=== PATIENT | male | born 1970 | race Hispanic/Latino ===

== ENCOUNTER 2021-02-10 07:33 | Inpatient (IN) | payer BC ==
[~2021-02-10] VITALS: Ht 182.9 cm; Wt 102.1 kg
[2021-02-10] MEDS ORDERED: SODIUM CHLORIDE 0.9% 1000ML 1,000 ML IV STA (08:04)
[2021-02-10 08:22] LABS: BASOPHILS % 0.2 % (0.0-1.0); EOSINOPHILS % 0.1 % (0.0-6.0); HEMATOCRIT 53.5 % (38.2-49.6); LYMPHOCYTES # (AUTO) 0.8 (1.0-3.2); LYMPHOCYTES % 7.9 % (18.0-39.1); MEAN CORPUSCULAR HEMOGLOBIN 30.5 pg (28-32); MEAN CORPUSCULAR HGB CONC 33.6 g/dL (31-35); MEAN CORPUSCULAR VOLUME 90.7 fL (81-99); MONOCYTES # (AUTO) 0.4 (0.2-0.8); MONOCYTES % 4.3 % (4.4-11.3); NEUTROPHILS # (AUTO) 8.4 (2.1-6.9); NEUTROPHILS % 86.9 % (38.7-80.0); PLATELET COUNT 268 x10e3/uL (140-360); RED CELL DISTRIBUTION WIDTH 12.3 % (11.7-14.4)
[2021-02-10 08:34] LABS: ALBUMIN 3.2 g/dL (3.5-5.0); ALBUMIN/GLOBULIN RATIO 0.7 (0.8-2.0); ANION GAP 17.4 mmol/L (8-16); CALCIUM 8.7 mg/dL (8.4-10.2); CREATININE, SERUM 0.92 mg/dL (0.72-1.25); POTASSIUM 3.4 mmol/L (3.5-5.1)
[2021-02-10 08:40] LABS: CREATINE KINASE MB 3.4 ng/mL (0-5.0)
[2021-02-10] MEDS: CEFTRIAXONE 1 GM in SODIUM CHLORIDE 0.9% 50ML 50 ML IV SCH (08:54)
[2021-02-10] MEDS: ZINC SULFATE 50 MG CAP PO SCH (09:24)
[2021-02-10] MEDS: ASCORBIC ACID 500 MG TAB PO SCH ×2 (09:24→17:23)
[2021-02-10] MEDS: DEXAMETHASONE SOD PHOS 10 MG/1 ML VIAL IV SCH (09:24)
[2021-02-10] MEDS ORDERED: REMDESIVIR 200MG 200 MG IV ONE (14:00)
[2021-02-10] MEDS ORDERED: ONDANSETRON HCL INJ 2MG/ML 2ML 2 MG/ML VIAL IV PRN (16:30)
[2021-02-10] MEDS: ENOXAPARIN SOD INJ 40 MG/0.4 ML SYR SC SCH (17:23)
[2021-02-10 21:19] LABS: CREATINE KINASE MB 6.3 ng/mL (0-5.0)
[2021-02-10 21:30] VITALS: BP_SYST 121; BP_SYST 143; BP_DIAS 83; BP_DIAS 92
[2021-02-10 22:00] VITALS: BP 121/92
[2021-02-10 23:00] VITALS: BP 128/89
[2021-02-11] VITALS (19 sets, daily range): BP systolic 106–155; BP diastolic 75–92
[2021-02-11 05:28] LABS: BASOPHILS % 0.1 % (0.0-1.0); HEMATOCRIT 45.9 % (38.2-49.6); HEMOGLOBIN 15.4 g/dL (14.0-18.0); LYMPHOCYTES # (AUTO) 0.9 (1.0-3.2); MEAN CORPUSCULAR HEMOGLOBIN 30.2 pg (28-32); MEAN CORPUSCULAR HGB CONC 33.6 g/dL (31-35); MONOCYTES # (AUTO) 0.6 (0.2-0.8); MONOCYTES % 7.4 % (4.4-11.3); NEUTROPHILS # (AUTO) 6.5 (2.1-6.9); PLATELET COUNT 234 x10e3/uL (140-360); RED CELL DISTRIBUTION WIDTH 12.2 % (11.7-14.4)
[2021-02-11 05:46] LABS: ALBUMIN 2.5 g/dL (3.5-5.0); ALBUMIN/GLOBULIN RATIO 0.7 (0.8-2.0); ANION GAP 13.8 mmol/L (8-16); CALCIUM 8.2 mg/dL (8.4-10.2); CREATININE, SERUM 0.71 mg/dL (0.72-1.25); POTASSIUM 3.8 mmol/L (3.5-5.1)
[2021-02-11 05:48] LABS: CREATINE KINASE MB 2.7 ng/mL (0-5.0)
[2021-02-11 07:16] LABS: LYMPHOCYTES % (MANUAL) 9 % (19-48); MONOCYTES % (MANUAL) 6 % (3.4-9.0); NEUTROPHILS % (MANUAL) 85 % (40-74)
[2021-02-11 07:17] LABS: PLATELET ESTIMATE ADEQUATE; PLATELET MORPHOLOGY COMMENT FEW LARGE; RBC MORPHOLOGY COMMENT NORMAL
[2021-02-11] MEDS: DEXAMETHASONE SOD PHOS 10 MG/1 ML VIAL IV SCH (09:08)
[2021-02-11] MEDS: ZINC SULFATE 50 MG CAP PO SCH (09:08)
[2021-02-11] MEDS: ASCORBIC ACID 500 MG TAB PO SCH ×2 (09:08→17:41)
[2021-02-11] MEDS: CEFTRIAXONE 1 GM in SODIUM CHLORIDE 0.9% 50ML 50 ML IV SCH (09:08)
[2021-02-11] MEDS ORDERED: SODIUM CHLORIDE 0.9% 250ML 250 ML ONE (10:17)
[2021-02-11] MEDS: GUAIFENESIN/CODEINE 5 ML LIQD PO PRN (13:04)
[2021-02-11] MEDS: REMDESIVIR 100MG 100 MG IV SCH (14:18)
[2021-02-11] MEDS: ENOXAPARIN SOD INJ 40 MG/0.4 ML SYR SC SCH (17:41)
[2021-02-12] VITALS (24 sets, daily range): BP systolic 110–167; BP diastolic 76–134
[2021-02-12 05:17] LABS: BASOPHILS % 0.1 % (0.0-1.0); HEMATOCRIT 45.5 % (38.2-49.6); HEMOGLOBIN 15.3 g/dL (14.0-18.0); LYMPHOCYTES # (AUTO) 1.4 (1.0-3.2); LYMPHOCYTES % 14.7 % (18.0-39.1); MEAN CORPUSCULAR HEMOGLOBIN 30.2 pg (28-32); MEAN CORPUSCULAR HGB CONC 33.6 g/dL (31-35); MEAN CORPUSCULAR VOLUME 89.7 fL (81-99); MONOCYTES # (AUTO) 0.7 (0.2-0.8); MONOCYTES % 6.9 % (4.4-11.3); NEUTROPHILS # (AUTO) 7.4 (2.1-6.9); NEUTROPHILS % 77.7 % (38.7-80.0); PLATELET COUNT 281 x10e3/uL (140-360); RED BLOOD COUNT 5.07 x10e6/uL (4.3-5.7); RED CELL DISTRIBUTION WIDTH 12.5 % (11.7-14.4)
[2021-02-12 05:39] LABS: ALBUMIN 2.6 g/dL (3.5-5.0); ALBUMIN/GLOBULIN RATIO 0.7 (0.8-2.0); ANION GAP 13.8 mmol/L (8-16); CALCIUM 8.3 mg/dL (8.4-10.2); CREATININE, SERUM 0.74 mg/dL (0.72-1.25); POTASSIUM 3.8 mmol/L (3.5-5.1)
[2021-02-12 07:18] LABS: LYMPHOCYTES % (MANUAL) 11 % (19-48); MONOCYTES % (MANUAL) 11 % (3.4-9.0); NEUTROPHILS % (MANUAL) 78 % (40-74); PLATELET ESTIMATE ADEQUATE; PLATELET MORPHOLOGY COMMENT FEW GIANT; RBC MORPHOLOGY COMMENT NORMAL
[2021-02-12] MEDS: DEXAMETHASONE SOD PHOS 10 MG/1 ML VIAL IV SCH (08:44)
[2021-02-12] MEDS: ASCORBIC ACID 500 MG TAB PO SCH ×2 (08:46→16:32)
[2021-02-12] MEDS: CEFTRIAXONE 1 GM in SODIUM CHLORIDE 0.9% 50ML 50 ML IV SCH (08:46)
[2021-02-12] MEDS: ZINC SULFATE 50 MG CAP PO SCH (08:47)
[2021-02-12] MEDS: GUAIFENESIN/CODEINE 5 ML LIQD PO PRN (09:31)
[2021-02-12] MEDS: REMDESIVIR 100MG 100 MG IV SCH (16:32)
[2021-02-12] MEDS: ENOXAPARIN SOD INJ 40 MG/0.4 ML SYR SC SCH (16:33)
[2021-02-12] MEDS: ZOLPIDEM TARTRATE 5 MG TAB PO PRN (23:19)
[2021-02-13] VITALS (9 sets, daily range): BP systolic 112–134; BP diastolic 76–83
[2021-02-13 06:16] LABS: BASOPHILS % 0.2 % (0.0-1.0); EOSINOPHILS # (AUTO) 0.1 (0.0-0.4); EOSINOPHILS % 0.4 % (0.0-6.0); HEMATOCRIT 44.9 % (38.2-49.6); HEMOGLOBIN 15.2 g/dL (14.0-18.0); LYMPHOCYTES # (AUTO) 1.8 (1.0-3.2); LYMPHOCYTES % 15.8 % (18.0-39.1); MEAN CORPUSCULAR HEMOGLOBIN 30.8 pg (28-32); MEAN CORPUSCULAR HGB CONC 33.9 g/dL (31-35); MEAN CORPUSCULAR VOLUME 90.9 fL (81-99); MONOCYTES # (AUTO) 0.7 (0.2-0.8); MONOCYTES % 6.3 % (4.4-11.3); NEUTROPHILS # (AUTO) 8.7 (2.1-6.9); NEUTROPHILS % 76.7 % (38.7-80.0); PLATELET COUNT 208 x10e3/uL (140-360); RED BLOOD COUNT 4.94 x10e6/uL (4.3-5.7); RED CELL DISTRIBUTION WIDTH 12.3 % (11.7-14.4)
[2021-02-13 07:03] LABS: ALBUMIN 2.6 g/dL (3.5-5.0); ALBUMIN/GLOBULIN RATIO 0.7 (0.8-2.0); CALCIUM 8.2 mg/dL (8.4-10.2); CREATININE, SERUM 0.69 mg/dL (0.72-1.25)
[2021-02-13 07:55] LABS: EOSINOPHILS % (MANUAL) 2 % (0-7); LYMPHOCYTES % (MANUAL) 14 % (19-48); METAMYELOCYTES % (MANUAL) 1 % (0-0); MONOCYTES % (MANUAL) 9 % (3.4-9.0); NEUTROPHILS % (MANUAL) 73 % (40-74)
[2021-02-13 07:56] LABS: PLATELET ESTIMATE ADEQUATE; PLATELET MORPHOLOGY COMMENT NORMAL; RBC MORPHOLOGY COMMENT NORMAL
[2021-02-13] MEDS: ZINC SULFATE 50 MG CAP PO SCH (09:24)
[2021-02-13] MEDS: ASCORBIC ACID 500 MG TAB PO SCH ×2 (09:24→17:05)
[2021-02-13] MEDS: DEXAMETHASONE SOD PHOS 10 MG/1 ML VIAL IV SCH (09:24)
[2021-02-13] MEDS: CEFTRIAXONE 1 GM in SODIUM CHLORIDE 0.9% 50ML 50 ML IV SCH (09:30)
[2021-02-13] MEDS ORDERED: SODIUM CHLORIDE 0.9% 100 ML ONE (14:02)
[2021-02-13] MEDS: REMDESIVIR 100MG 100 MG IV SCH (14:30)
[2021-02-13] MEDS: ENOXAPARIN SOD INJ 40 MG/0.4 ML SYR SC SCH (17:05)
[2021-02-13] MEDS: ZOLPIDEM TARTRATE 5 MG TAB PO PRN (23:00)
[2021-02-14] VITALS (8 sets, daily range): BP systolic 108–128; BP diastolic 84–93
[2021-02-14] MEDS: GUAIFENESIN/CODEINE 5 ML LIQD PO PRN (06:14)
[2021-02-14] MEDS: DEXAMETHASONE SOD PHOS 10 MG/1 ML VIAL IV SCH (08:18)
[2021-02-14] MEDS: ASCORBIC ACID 500 MG TAB PO SCH ×2 (08:18→17:36)
[2021-02-14] MEDS: ZINC SULFATE 50 MG CAP PO SCH (08:18)
[2021-02-14] MEDS: CEFTRIAXONE 1 GM in SODIUM CHLORIDE 0.9% 50ML 50 ML IV SCH (08:18)
[2021-02-14] MEDS: REMDESIVIR 100MG 100 MG IV SCH (14:12)
[2021-02-14] MEDS: ENOXAPARIN SOD INJ 40 MG/0.4 ML SYR SC SCH (17:36)
[2021-02-14] MEDS: ZOLPIDEM TARTRATE 5 MG TAB PO PRN ×2 (22:00→22:03)
[2021-02-15] VITALS (7 sets, daily range): BP systolic 101–126; BP diastolic 78–90
[2021-02-15] MEDS: GUAIFENESIN/CODEINE 5 ML LIQD PO PRN (00:41)
[2021-02-15] MEDS: DEXAMETHASONE SOD PHOS 10 MG/1 ML VIAL IV SCH (08:44)
[2021-02-15] MEDS: CEFTRIAXONE 1 GM in SODIUM CHLORIDE 0.9% 50ML 50 ML IV SCH (08:44)
[2021-02-15] MEDS: ASCORBIC ACID 500 MG TAB PO SCH ×2 (08:44→17:17)
[2021-02-15] MEDS: ZINC SULFATE 50 MG CAP PO SCH (08:44)
[2021-02-15] MEDS: ENOXAPARIN SOD INJ 40 MG/0.4 ML SYR SC SCH (17:17)
[2021-02-15] MEDS: ZOLPIDEM TARTRATE 5 MG TAB PO PRN (22:33)
[2021-02-16] VITALS (8 sets, daily range): BP systolic 119–122; BP diastolic 65–90
[2021-02-16 06:07] LABS: BASOPHILS % 0.1 % (0.0-1.0); EOSINOPHILS # (AUTO) 0.2 (0.0-0.4); EOSINOPHILS % 1.9 % (0.0-6.0); HEMATOCRIT 40.7 % (38.2-49.6); HEMOGLOBIN 14.3 g/dL (14.0-18.0); LYMPHOCYTES # (AUTO) 1.1 (1.0-3.2); LYMPHOCYTES % 10.5 % (18.0-39.1); MEAN CORPUSCULAR HEMOGLOBIN 32.4 pg (28-32); MEAN CORPUSCULAR HGB CONC 35.1 g/dL (31-35); MEAN CORPUSCULAR VOLUME 92.1 fL (81-99); MONOCYTES # (AUTO) 0.9 (0.2-0.8); MONOCYTES % 8.1 % (4.4-11.3); NEUTROPHILS # (AUTO) 8.4 (2.1-6.9); NEUTROPHILS % 78.5 % (38.7-80.0); PLATELET COUNT 303 x10e3/uL (140-360); RED BLOOD COUNT 4.42 x10e6/uL (4.3-5.7); RED CELL DISTRIBUTION WIDTH 12.8 % (11.7-14.4)
[2021-02-16 07:11] LABS: ALBUMIN 2.6 g/dL (3.5-5.0); ALBUMIN/GLOBULIN RATIO 0.7 (0.8-2.0); CALCIUM 8.2 mg/dL (8.4-10.2); CREATININE, SERUM 0.7 mg/dL (0.72-1.25)
[2021-02-16] MEDS: ZINC SULFATE 50 MG CAP PO SCH (09:04)
[2021-02-16] MEDS: ASCORBIC ACID 500 MG TAB PO SCH ×2 (09:04→16:19)
[2021-02-16] MEDS: CEFTRIAXONE 1 GM in SODIUM CHLORIDE 0.9% 50ML 50 ML IV SCH (09:05)
[2021-02-16] MEDS: DEXAMETHASONE SOD PHOS 10 MG/1 ML VIAL IV SCH (14:18)
[2021-02-16] MEDS: ENOXAPARIN SOD INJ 40 MG/0.4 ML SYR SC SCH (16:19)
[2021-02-16] MEDS: ZOLPIDEM TARTRATE 5 MG TAB PO PRN (22:00)
[2021-02-17] VITALS (7 sets, daily range): BP systolic 104–127; BP diastolic 78–93
[2021-02-17] MEDS: ZINC SULFATE 50 MG CAP PO SCH (08:34)
[2021-02-17] MEDS: ASCORBIC ACID 500 MG TAB PO SCH ×2 (08:34→15:06)
[2021-02-17] MEDS: DEXAMETHASONE SOD PHOS 10 MG/1 ML VIAL IV SCH (15:06)
[2021-02-18] VITALS (7 sets, daily range): BP systolic 113–136; BP diastolic 81–96
[2021-02-18] MEDS ORDERED: ZOLPIDEM TARTRATE 5 MG TAB PO PRN (09:30)
[2021-02-18] MEDS: ASCORBIC ACID 500 MG TAB PO SCH ×2 (09:45→16:33)
[2021-02-18] MEDS: ZINC SULFATE 50 MG CAP PO SCH (09:45)
[2021-02-18] MEDS: OMEPRAZOLE 20 MG CAP PO SCH (09:57)
[2021-02-18] MEDS: APIXAB 2.5 MG TABLET PO SCH ×2 (09:57→16:33)
[2021-02-18] MEDS ORDERED: DEXAMETHASONE 4 MG TAB PO SCH (17:00)
[2021-02-19] VITALS: BP 119/89
[2021-02-19 04:00] VITALS: BP 123/88
[2021-02-19 08:00] VITALS: BP 125/86
[2021-02-19] MEDS: ASCORBIC ACID 500 MG TAB PO SCH (08:18)
[2021-02-19] MEDS: OMEPRAZOLE 20 MG CAP PO SCH (08:18)
[2021-02-19] MEDS: APIXAB 2.5 MG TABLET PO SCH (08:18)
[2021-02-19] MEDS: ZINC SULFATE 50 MG CAP PO SCH (08:19)
[2021-02-19 09:56] VITALS: BP 125/86
[2021-02-19] MEDS ORDERED: ONDANSETRON HCL 4 MG ORAL DISINTEGRATING TAB PO PRN (10:15)
== END 2021-02-19 10:16 | disposition home health service (06) | DRG 177 ==
LOC: ER 08:15 → ERHOLD 09:47 → ICU 21:10 → IMCU 02-12 23:55
PROVIDERS: ADMIT Internal Medicine; ATTEND Internal Medicine
PROC: 8E0ZXY6 Isolation (ICD-10-PCS; principal; 2021-02-10)
PROC: 02HV33Z Insertion of Infusion Device into Superior Vena Cava, Percutaneous Approach (ICD-10-PCS; 2021-02-10)
PROC: 5A0935A Assistance with Respiratory Ventilation, Less than 24 Consecutive Hours, High Flow/Velocity Cannula (ICD-10-PCS; 2021-02-10)
PROC: XW043E5 Introduction of Remdesivir Anti-infective into Central Vein, Percutaneous Approach, New Technology Group 5 (ICD-10-PCS; 2021-02-11)
DX: U07.1 COVID-19 (principal); J12.82 Pneumonia due to coronavirus disease 2019; J96.01 Acute respiratory failure with hypoxia; J15.9 Unspecified bacterial pneumonia; B17.8 Other specified acute viral hepatitis; E87.6 Hypokalemia; E66.9 Obesity, unspecified; Z68.30 Body mass index [BMI] 30.0-30.9, adult
CPT/HCPCS: 36415; 36569; 71045; 80053; 82550; 82553; 82948; 83735; 84484; 85025; 86140; 87040; 93005; 96360; 99285; J0456; J0696; J1100; J1650; J7030; J7050; U0002